=== PATIENT | male | born 2000 | race Caucasian/White ===

== ENCOUNTER 2020-10-24 21:15 | Emergency (ER) | payer SELFPAY ==
--- NOTE | 2020-10-24 21:37 | EDM.PDOC ---
"ED HPI GENERAL MEDICAL PROBLEM - General Stated Complaint: IN PAIN Time Seen by Provider: 10/24/20 21:25 Source of Information: Reports: Patient History Limitations: Reports: No Limitations - History of Present Illness INITIAL COMMENTS - FREE TEXT/NARRATIVE: This 20 yo male patient reports to the ED with right sided abdominal pain. The patient locates his pain as under his right ribs. The patient reports his symptoms started 4 days ago. The patient has not taken any Tylenol or ibuprofen for temporary symptom relief. The patient has not been seen by a primary care facility as he just moved to this area. The patient reports increased pain with sitting down or lying down as well as with getting up. The patient reports he had a softer bowel movement yesterday with increased pain with baring down. The patient report no changes with his symptoms with eating. The patient denies any nausea, vomiting or diarrhea. Onset Date: 10/20/20 Duration: Constant Location: Reports: Abdomen (Right siede) Quality: Reports: Ache, Sharp Severity: Moderate Improves with: Reports: Rest Worsens with: Reports: Movement Associated Symptoms: Reports: No Other Symptoms Treatments ACCOUNTS SUPERVISOR: Denies: Acetaminophen, NSAIDS Right Flank Pain Score (Numeric/FACES): 9 - Related Data Allergies Allergy/AdvReac Type Severity Reaction Status Date / Time No Known Allergies Allergy Verified 10/24/20 21:27 Home Meds: Home Meds . [No Known Home Meds] 10/24/20 [History] Social & Family History - Tobacco Use Tobacco Use Status *Q: Never Tobacco User - Recreational Drug Use Recreational Drug Use: No ED ROS GENERAL - Review of Systems Review Of Systems: Comprehensive ROS is negative, except as noted in HPI. ED EXAM, GI/ABD - Physical Exam Exam: See Below Exam Limited By: No Limitations General Appearance: Alert, WD/WN, Mild Distress Eyes: Bilateral: Normal Appearance, EOMI Ears: Normal External Exam, Normal Canal, Hearing Grossly Normal, Normal TMs Nose: Normal Inspection, Normal Mucosa, No Blood Throat/Mouth: Normal Inspection, Normal Lips, Normal Teeth, Normal Gums, Normal Oropharynx, Normal Voice, No Airway Compromise Head: Atraumatic, Normocephalic Neck: Normal Inspection, Supple, Non-Tender, Full Range of Motion Respiratory/Chest: No Respiratory Distress, Lungs Clear, Normal Breath Sounds, No Accessory Muscle Use, Chest Non-Tender Cardiovascular: Normal Peripheral Pulses, Regular Rate, Rhythm, No Edema, No Gallop, No JVD, No Murmur, No Rub GI/Abdominal Exam: Normal Bowel Sounds, Tender (RLQ ), Other (The patient reports increased pain with psoas). No: Rebound (Male) Exam: Deferred Rectal (Males) Exam: Deferred Back Exam: Normal Inspection, Full Range of Motion, NT Extremities: Normal Inspection, Normal Range of Motion, Non-Tender, Normal Capillary Refill, No Pedal Edema Neurological: Alert, Oriented, CN II-XII Intact, Normal Cognition, Normal Gait, Normal Reflexes, No Motor/Sensory Deficits Psychiatric: Normal Affect, Normal Mood Skin Exam: Warm, Dry, Intact, Normal Color, No Rash Lymphatic: No Adenopathy Course - Vital Signs Last Recorded V/S: Last Vital Signs Temp 98.4 F 10/24/20 21:27 Pulse 101 H 10/24/20 21:27 Resp 16 10/24/20 21:27 BP 140/87 10/24/20 21:27 Pulse Ox 99 10/24/20 21:27 - Orders/Labs/Meds Labs: Laboratory Tests 10/24/20 10/24/20 10/24/20 Range/Units 21:32 21:32 21:34 WBC 10.4 H (5.0-10.0) 10^3/uL RBC 5.11 (4.6-6.2) 10^6/uL Hgb 15.8 (14.0-18.0) g/dL Hct 47.5 (40.0-54.0) % MCV 93.0 (80-100) fL MCH 30.9 (27.0-34.0) pg MCHC 33.3 (33.0-35.0) g/dL Plt Count 248 (150-450) 10^3/uL Neut % (Auto) 65.0 (42.2-75.2) % Lymph % (Auto) 23.0 (20.5-50.1) % [place] % (Auto) 9.1 H (2-8) % Eos % (Auto) 2.7 (1.0-3.0) % Baso % (Auto) 0.2 (0.0-1.0) % Sodium 146 H (136-145) mmol/L Potassium 3.9 (3.5-5.1) mmol/L Chloride 106 (98-107) mmol/L Carbon Dioxide 31 (21-32) mmol/L Anion Gap 12.9 (7-13) mEq/L BUN 19 H (7-18) mg/dL Creatinine 0.80 (0.70-1.30) mg/dL Est Cr Clr Drug Dosing 122.31 mL/min Estimated GFR (MDRD) > 60 BUN/Creatinine Ratio 23.8 (No establ ref range) Glucose 97 (70-99) mg/dL Calcium 8.6 (8.5-10.1) mg/dL Total Bilirubin 0.2 (0.2-1.0) mg/dL AST 37 (15-37) U/L ALT 131 H (16-63) U/L Alkaline Phosphatase 75 (46-116) U/L Total Protein 7.1 (6.4-8.2) g/dL Albumin 3.8 (3.4-5.0) g/dL Globulin 3.3 Albumin/Globulin Ratio 1.2 Amylase 52 (25-115) U/L Lipase 100 (73-393) U/L Urine Color Yellow (YELLOW) Urine Appearance Slightly cloudy (CLEAR) Urine pH 7.0 (5.0-9.0) Ur Specific [place] 1.025 (1.005-1.030) Urine Protein Negative (NEGATIVE) Urine Glucose (UA) Negative (NEGATIVE) Urine Ketones Negative (NEGATIVE) Urine Occult Blood Trace-intact H (NEGATIVE) Urine Nitrite Negative (NEGATIVE) Urine Bilirubin Negative (NEGATIVE) Urine Urobilinogen 0.2 (0.2-1.0) mg/dL Ur Leukocyte Esterase Negative (NEGATIVE) Urine RBC 5-10 H (0-5) /HPF Urine WBC 0-5 (0-5/HPF) /HPF Ur Epithelial Cells Rare (NOT SEEN) /HPF Amorphous Sediment Few (NOT SEEN) /HPF Urine Bacteria Rare (0-FEW/HPF) /HPF Urine Mucus Rare (NOT SEEN) /LPF Urine Other See note - Radiology Interpretation Free Text/Narrative:: [facility] Final Radiology Report Call: [phone] assistance Online chat: [email or web address] Name: MILTON NEGRON Age: 20Years M Date: 10/24/2020 SSN: -- : [id number] Study: CT ABDOMEN PELVIS WO CONT Requesting Physician: Jm Pizano Images: [id number] Addl Studies: Provided Clinical History: Right lower quadrant abdominal pain Contrast: Without Contrast Medium: Contrast Amount: Contrast Method: Page 1 of 2 PROCEDURE INFORMATION: Exam: CT Abdomen And Pelvis Without Contrast Exam date and time: 10/24/2020 10:15 PM Age: 20 years old Clinical indication: Other: Hematuria, wbc 10.4; Additional info: Right lower quadrant abdominal pain TECHNIQUE: Imaging protocol: Computed tomography of the abdomen and pelvis without contrast. Radiation optimization: All CT scans at this facility use at least one of these dose optimization techniques: automated exposure control; mA and/or kV adjustment per patient size (includes targeted exams where dose is matched to clinical indication); or iterative reconstruction. COMPARISON: No relevant prior studies available. FINDINGS: Lungs: The lung bases are clear. No effusion Liver: Normal. No mass. Gallbladder and bile ducts: No wall thickening, pericholecystic fluid or stones. Pancreas: Normal. No ductal dilation. Spleen: Normal. No splenomegaly. Adrenal glands: Normal. No mass. Kidneys and ureters: Normal. No hydronephrosis. Stomach and bowel: Unremarkable. No obstruction. No mucosal thickening. Appendix: No evidence of appendicitis. Intraperitoneal space: Unremarkable. No free air. No significant fluid collection. Vasculature: Unremarkable. No abdominal aortic aneurysm. Lymph nodes: Unremarkable. No enlarged lymph nodes. MILTON NEGRON | Final Radiology Report CONFIDENTIALITY STATEMENT This report is intended only for use by the referring physician, and only in accordance with law. If you received this in error, call [phone]. Page 2 of 2 Urinary bladder: Unremarkable as visualized. Reproductive: Unremarkable as visualized. Bones/joints: Unremarkable. No acute fracture. Soft tissues: Unremarkable. Other findings: No cause for acute pain is identified. IMPRESSION: No cause for acute pain is identified. Thank you for allowing us to participate in the care of your patient. Dictated and Authenticated by: Jesús Jin DO 10/24/2020 10:31 PM Central Time ([place] & [place]) - Re-Assessments/Exams Free Text/Narrative Re-Assessment/Exam: 10/24/20 22:01 The patient was advised of the lab results. An order was placed for a CT of his abdomen and pelvis without contrast. Departure - Departure Time of Disposition: 22:37 Disposition: Home, Self-Care 01 Condition: Fair Clinical Impression: Abdominal pain Constipation Qualifiers: Constipation type: unspecified constipation type Qualified Code(s): K59.00 - Constipation, unspecified - Discharge Information *PRESCRIPTION DRUG MONITORING PROGRAM REVIEWED*: Not Applicable *COPY OF PRESCRIPTION DRUG MONITORING REPORT IN PATIENT DES: Not Applicable Instructions: Constipation, Adult, [id number] Forms: ED Department Discharge Care Plan Goals: The patient was advised of the examination, lab and CT results during the visit. The patient was advised to take an adult dose of MiraLax daily for the next 4 days and increase his oral fluid intake. If the patient has any additional symptoms or concerns, the patient should either follow-up with a primary care facility or return to the emergency department. Sepsis Event Note (ED) - Evaluation Sepsis Screening Result: No Definite Risk - Focused Exam Vital Signs: Vital Signs Temp Pulse Resp BP Pulse Ox 10/24/20 21:27 98.4 F 101 H 16 140/87 99"
[2020-10-24 21:55] LABS: ANION GAP 12.9 mEq/L (7-13); CHLORIDE,CL 106 mmol/L (98-107); SODIUM,NA 146 mmol/L (136-145)
--- NOTE | 2020-10-24 22:32 | CT ---
PROCEDURE INFORMATION: Exam: CT Abdomen And Pelvis Without Contrast Exam date and time: 10/24/2020 10:15 PM Age: 20 years old Clinical indication: Other: Hematuria, wbc 10.4; Additional info: Right lower quadrant abdominal pain TECHNIQUE: Imaging protocol: Computed tomography of the abdomen and pelvis without contrast. Radiation optimization: All CT scans at this facility use at least one of these dose optimization techniques: automated exposure control; mA and/or kV adjustment per patient size (includes targeted exams where dose is matched to clinical indication); or iterative reconstruction. COMPARISON: No relevant prior studies available. FINDINGS: Lungs: The lung bases are clear. No effusion Liver: Normal. No mass. Gallbladder and bile ducts: No wall thickening, pericholecystic fluid or stones. Pancreas: Normal. No ductal dilation. Spleen: Normal. No splenomegaly. Adrenal glands: Normal. No mass. Kidneys and ureters: Normal. No hydronephrosis. Stomach and bowel: Unremarkable. No obstruction. No mucosal thickening. Appendix: No evidence of appendicitis. Intraperitoneal space: Unremarkable. No free air. No significant fluid collection. Vasculature: Unremarkable. No abdominal aortic aneurysm. Lymph nodes: Unremarkable. No enlarged lymph nodes. Urinary bladder: Unremarkable as visualized. Reproductive: Unremarkable as visualized. Bones/joints: Unremarkable. No acute fracture. Soft tissues: Unremarkable. Other findings: No cause for acute pain is identified. IMPRESSION: No cause for acute pain is identified.
== END 2020-10-24 22:45 | disposition home or self-care (01) ==
LOC: DL.ED 21:15
DX: K59.00 Constipation, unspecified (principal)
CPT/HCPCS: 36415; 74176; 80053; 81001; 82150; 83690; 85025; 99283; 99284-25

== ENCOUNTER 2024-02-10 23:42 | Emergency (ER) | payer SELFPAY ==
[2024-02-10 23:40] LABS: BASOPHILS PERCENT AUTO 0.3 % (0.0-1.0); EOSINOPHILS PERCENT AUTO 1.4 % (1.0-3.0); HEMATOCRIT 48.5 % (40.0-54.0); HEMOGLOBIN 15.9 g/dL (14.0-18.0); LYMPHOCYTES PERCENT AUTO 23.8 % (20.5-50.1); MEAN CORPUSCULAR HEMOGLOBIN 30.5 pg (27.0-34.0); MEAN CORPUSCULAR HGB CONC 32.8 g/dL (33.0-35.0); MEAN CORPUSCULAR VOLUME 93.1 fL (80-100); MONOCYTES PERCENT AUTO 5.1 % (2-8); NEUTROPHILS PERCENT AUTO 69.4 % (42.2-75.2); PLATELET COUNT,PLT 335 10^3/uL (150-450); RED BLOOD CELL COUNT 5.21 10^6/uL (4.6-6.2)
[2024-02-10] MEDS: Ketorolac 30 MG/ML SDV IM ONE (23:45)
[2024-02-10] MEDS: Ibuprofen 600 MG Tab PO ONE (23:45)
[2024-02-11 00:01] LABS: A/G RATIO 1.2; ALBUMIN 4.1 g/dL (3.4-5.0); ANION GAP 11.9 mEq/L (7-13); BILIRUBIN TOTAL 0.2 mg/dL (0.2-1.0); BUN/CREATININE RATIO 13.9 (No establ ref range); CALCIUM 9.6 mg/dL (8.5-10.1); CREATININE 1.01 mg/dL (0.70-1.30); EST CRCL DRUG DOSING (CG) 90.76 mL/min; MAGNESIUM 2.1 mg/dL (1.8-2.4); POTASSIUM,K 3.9 mmol/L (3.5-5.1); PROTEIN TOTAL,TP 7.6 g/dL (6.4-8.2)
[2024-02-11] MEDS: Iopamidol 612 MG/ML 100 ML Bottle IVPUSH ONE (01:05)
[2024-02-11] MEDS: Acetaminophen 500 MG Tab PO ONE (02:49)
[2024-02-11] MEDS: Ketorolac 30 MG/ML SDV IVPUSH ONE (05:53)
[2024-02-11] MEDS ORDERED: Ibuprofen 600 MG Tab PO ONE (05:54)
[2024-02-11] MEDS ORDERED: Acetaminophen 325 MG Tab PO ONE (05:54)
== END 2024-02-11 06:46 | disposition home or self-care (01) ==
LOC: EDUNIT# → DL.ED 23:42
DX: K52.9 Noninfective gastroenteritis and colitis, unspecified (principal); M54.50 Low back pain, unspecified
CPT/HCPCS: 36415; 72100; 74177; 80053; 83690; 83735; 85025; 93005; 96372; 96374; 99285; A9270; J1885; Q9967; 93010; 99284

== ENCOUNTER 2024-02-12 15:53 | Emergency (ER) | payer SELFPAY ==
[2024-02-12 17:30] LABS: APPEARANCE,URINE CLEAR (CLEAR); BILIRUBIN,URINE NEGATIVE (NEGATIVE); COLOR,URINE YELLOW (YELLOW); GLUCOSE,URINE NEGATIVE (NEGATIVE); KETONES,URINE NEGATIVE (NEGATIVE); LEUKOCYTE ESTERASE,URINE NEGATIVE (NEGATIVE); NITRITE,URINE NEGATIVE (NEGATIVE); OCCULT BLOOD,URINE NEGATIVE (NEGATIVE); PH,URINE 5.5 (5.0-9.0); PROTEIN,URINE NEGATIVE (NEGATIVE); UROBILINOGEN,URINE 0.2 mg/dL (0.2-1.0)
[2024-02-12] MEDS ORDERED: Magnesium Citrate Solution 296 ML Bottle ONE (18:02)
[2024-02-12] MEDS: Magnesium Citrate Solution 296 ML Bottle PO ONE (18:04)
== END 2024-02-12 18:18 | disposition home or self-care (01) ==
LOC: DL.ED 15:53
DX: K59.00 Constipation, unspecified (principal); M54.50 Low back pain, unspecified
CPT/HCPCS: 74019; 81003; 99283; 99284

== ENCOUNTER 2024-02-18 21:23 | Emergency (ER) | payer SELFPAY ==
[2024-02-18] MEDS: Iopamidol 612 MG/ML 100 ML Bottle IVPUSH ONE (21:29)
[2024-02-18 21:43] LABS: BASOPHILS PERCENT AUTO 0.2 % (0.0-1.0); EOSINOPHILS PERCENT AUTO 2.9 % (1.0-3.0); HEMATOCRIT 49.8 % (40.0-54.0); HEMOGLOBIN 16.5 g/dL (14.0-18.0); LYMPHOCYTES PERCENT AUTO 25.5 % (20.5-50.1); MEAN CORPUSCULAR HEMOGLOBIN 30.8 pg (27.0-34.0); MEAN CORPUSCULAR HGB CONC 33.1 g/dL (33.0-35.0); MEAN CORPUSCULAR VOLUME 92.9 fL (80-100); MONOCYTES PERCENT AUTO 4.7 % (2-8); NEUTROPHILS PERCENT AUTO 66.7 % (42.2-75.2); PLATELET COUNT,PLT 272 10^3/uL (150-450); RED BLOOD CELL COUNT 5.36 10^6/uL (4.6-6.2); WHITE BLOOD CELL COUNT,WBC 10.3 10^3/uL (5.0-10.0)
[2024-02-18] MEDS: Acetaminophen 325 MG Tab PO ONE (22:00)
[2024-02-18 22:14] LABS: A/G RATIO 1.1; ALANINE AMINOTRANSFERASE,ALT 52 U/L (16-63); ALBUMIN 3.9 g/dL (3.4-5.0); ALKALINE PHOSPHATASE 72 U/L (46-116); ANION GAP 17.5 mEq/L (7-13); ASPARTATE AMNIOTRANSFERASE,AST 20 U/L (15-37); BILIRUBIN TOTAL 0.2 mg/dL (0.2-1.0); BLOOD UREA NITROGEN,BUN 13 mg/dL (7-18); BUN/CREATININE RATIO 12.9 (No establ ref range); CALCIUM 9.1 mg/dL (8.5-10.1); CARBON DIOXIDE,CO2 24 mmol/L (21-32); CHLORIDE,CL 106 mmol/L (98-107); CREATININE 1.01 mg/dL (0.70-1.30); EST CRCL DRUG DOSING (CG) 94.43 mL/min; GLUCOSE RANDOM 136 mg/dL (70-99); LIPASE 30 U/L (16-77); MAGNESIUM 1.9 mg/dL (1.8-2.4); POTASSIUM,K 3.5 mmol/L (3.5-5.1); PROTEIN TOTAL,TP 7.3 g/dL (6.4-8.2); SODIUM,NA 144 mmol/L (136-145)
[2024-02-18 22:15] LABS: ESTIMATED GFR 107 mL/min (>=60)
== END 2024-02-18 23:41 | disposition home or self-care (01) ==
LOC: DL.ED 21:23
DX: R10.9 Unspecified abdominal pain (principal)
CPT/HCPCS: 36415; 74177; 80053; 83690; 83735; 84484; 85025; 99285; A9270; Q9967

== ENCOUNTER 2024-02-24 10:57 | Emergency (ER) | payer SELFPAY ==
[2024-02-24] MEDS: Acetaminophen 500 MG Tab PO ONE (11:16)
[2024-02-24] MEDS: Take Home: Ondansetron 4 MG Tab.DIS, 5 Tab Pack PO ONE (11:17)
== END 2024-02-24 11:22 | disposition home or self-care (01) ==
LOC: DL.ED 10:57
DX: B34.9 Viral infection, unspecified (principal)
CPT/HCPCS: 99283; A9270; Q0162

== ENCOUNTER 2024-02-26 18:11 | Emergency (ER) | payer SELFPAY ==
[2024-02-26] MEDS: Ketorolac 30 MG/ML SDV IM ONE (18:24)
== END 2024-02-26 18:30 | disposition home or self-care (01) ==
LOC: DL.ED 18:11
DX: R07.89 Other chest pain (principal)
CPT/HCPCS: 96372; 99284; J1885

== ENCOUNTER 2024-02-28 13:23 | Emergency (ER) | payer MEDICAID ==
[2024-02-28 14:19] LABS: BASOPHILS PERCENT AUTO 0.4 % (0.0-1.0); EOSINOPHILS PERCENT AUTO 3.8 % (1.0-3.0); HEMATOCRIT 50.5 % (40.0-54.0); HEMOGLOBIN 16.5 g/dL (14.0-18.0); LYMPHOCYTES PERCENT AUTO 22.4 % (20.5-50.1); MEAN CORPUSCULAR HGB CONC 32.7 g/dL (33.0-35.0); MEAN CORPUSCULAR VOLUME 94.7 fL (80-100); MONOCYTES PERCENT AUTO 6.3 % (2-8); NEUTROPHILS PERCENT AUTO 67.1 % (42.2-75.2); PLATELET COUNT,PLT 228 10^3/uL (150-450); RED BLOOD CELL COUNT 5.33 10^6/uL (4.6-6.2); WHITE BLOOD CELL COUNT,WBC 9.1 10^3/uL (5.0-10.0)
[2024-02-28 14:45] LABS: A/G RATIO 1.2; ALBUMIN 4.2 g/dL (3.4-5.0); ANION GAP 12.3 mEq/L (7-13); BILIRUBIN TOTAL 0.3 mg/dL (0.2-1.0); BUN/CREATININE RATIO 19.1 (No establ ref range); CALCIUM 9.5 mg/dL (8.5-10.1); CREATININE 0.89 mg/dL (0.70-1.30); EST CRCL DRUG DOSING (CG) 107.17 mL/min; POTASSIUM,K 4.3 mmol/L (3.5-5.1); PROTEIN TOTAL,TP 7.6 g/dL (6.4-8.2)
[2024-02-28] MEDS: Aspirin 81 MG Tab.Chew PO ONE (15:38)
== END 2024-02-28 16:58 | disposition home or self-care (01) ==
LOC: DL.ED 13:23
DX: R07.89 Other chest pain (principal)
CPT/HCPCS: 36415; 71045; 80053; 83690; 84484; 85025; 93005; 99285; A9270; 93010; 99284

== ENCOUNTER 2024-03-02 12:38 | Emergency (ER) | payer MEDICAID | END 2024-03-02 16:06 | disposition home or self-care (01) | LOC: DL.ED 12:38 | DX: R19.7 Diarrhea, unspecified (principal) | CPT/HCPCS: 87428-QW; 99282; 99284 ==

== ENCOUNTER 2024-03-03 15:07 | Emergency (ER) | payer MEDICAID ==
[2024-03-03] MEDS: Ketorolac 30 MG/ML SDV IM ONE (15:31)
== END 2024-03-03 15:44 | disposition home or self-care (01) ==
LOC: DL.ED 15:07
DX: R09.1 Pleurisy (principal)
CPT/HCPCS: 96372; 99283; J1885

== ENCOUNTER 2024-03-03 20:54 | Emergency (ER) | payer MEDICAID ==
[2024-03-03 21:54] LABS: APPEARANCE,URINE CLEAR (CLEAR); BILIRUBIN,URINE NEGATIVE (NEGATIVE); COLOR,URINE STRAW (YELLOW); GLUCOSE,URINE NEGATIVE (NEGATIVE); KETONES,URINE NEGATIVE (NEGATIVE); LEUKOCYTE ESTERASE,URINE NEGATIVE (NEGATIVE); NITRITE,URINE NEGATIVE (NEGATIVE); OCCULT BLOOD,URINE TRACE-INTACT (NEGATIVE); PROTEIN,URINE NEGATIVE (NEGATIVE); UROBILINOGEN,URINE 0.2 mg/dL (0.2-1.0)
[2024-03-03 22:03] LABS: BACTERIA,URINE RARE /HPF (0-FEW/HPF); RBC,URINE 0-5 /HPF (0-5); WBC,URINE NOT SEEN /HPF (0-5/HPF)
[2024-03-03 22:04] LABS: AMORPHOUS SEDIMENT,URINE FEW /HPF (NOT SEEN); EPITHELIAL CELLS,URINE RARE /HPF (NOT SEEN)
== END 2024-03-03 21:45 | disposition home or self-care (01) ==
LOC: DL.ED 20:54
DX: R30.0 Dysuria (principal); Z63.9 Problem related to primary support group, unspecified; Z59.86 Financial insecurity; Z59.82 Transportation insecurity; Z59.01 Sheltered homelessness
CPT/HCPCS: 81001; 99283

== ENCOUNTER 2024-03-04 21:21 | Emergency (ER) | payer MEDICAID | END 2024-03-04 22:46 | disposition home or self-care (01) | LOC: DL.ED 21:21 | DX: K62.5 Hemorrhage of anus and rectum (principal); K59.00 Constipation, unspecified; Z72.821 Inadequate sleep hygiene; Z59.01 Sheltered homelessness; Z59.86 Financial insecurity; Z59.82 Transportation insecurity; Z63.9 Problem related to primary support group, unspecified | CPT/HCPCS: 99283 ==

== ENCOUNTER 2024-03-07 17:19 | Emergency (ER) | payer MEDICAID ==
[2024-03-07] MEDS: Ketorolac 30 MG/ML SDV IM ONE (18:14)
[2024-03-07] MEDS: Lidocaine 5% 700 MG Patch TOP ONE (18:14)
[2024-03-07] MEDS: Acetaminophen 500 MG Tab PO ONE (18:15)
[2024-03-07] MEDS: Orphenadrine 60 MG/2 ML Inj IM ONE (18:15)
== END 2024-03-07 18:42 | disposition home or self-care (01) ==
LOC: DL.ED 17:19
DX: M54.50 Low back pain, unspecified (principal)
CPT/HCPCS: 96372; 99282; 99283; A9270-GY; J1885; J2360

== ENCOUNTER 2024-03-10 20:28 | Emergency (ER) | payer MEDICAID ==
[2024-03-10] MEDS: Ketorolac 30 MG/ML SDV IM ONE (22:41)
[2024-03-10 22:53] LABS: APPEARANCE,URINE CLEAR (CLEAR); BILIRUBIN,URINE NEGATIVE (NEGATIVE); COLOR,URINE YELLOW (YELLOW); GLUCOSE,URINE NEGATIVE (NEGATIVE); KETONES,URINE NEGATIVE (NEGATIVE); LEUKOCYTE ESTERASE,URINE NEGATIVE (NEGATIVE); NITRITE,URINE NEGATIVE (NEGATIVE); OCCULT BLOOD,URINE NEGATIVE (NEGATIVE); PROTEIN,URINE NEGATIVE (NEGATIVE); UROBILINOGEN,URINE 0.2 mg/dL (0.2-1.0)
== END 2024-03-11 00:55 | disposition home or self-care (01) ==
LOC: DL.ED 20:28
DX: M54.50 Low back pain, unspecified (principal); Z86.16 Personal history of COVID-19
CPT/HCPCS: 72131; 81003; 96372; 99284; J1885

== ENCOUNTER 2024-03-11 22:29 | Emergency (ER) | payer MEDICAID ==
[2024-03-12] MEDS: Aspirin 81 MG Tab.Chew PO ONE (01:57)
[2024-03-12 02:15] LABS: BASOPHILS PERCENT AUTO 0.4 % (0.0-1.0); EOSINOPHILS PERCENT AUTO 2.2 % (1.0-3.0); HEMATOCRIT 50.6 % (40.0-54.0); HEMOGLOBIN 16.8 g/dL (14.0-18.0); MEAN CORPUSCULAR HEMOGLOBIN 31.2 pg (27.0-34.0); MEAN CORPUSCULAR HGB CONC 33.2 g/dL (33.0-35.0); MEAN CORPUSCULAR VOLUME 94.1 fL (80-100); MONOCYTES PERCENT AUTO 5.6 % (2-8); NEUTROPHILS PERCENT AUTO 61.8 % (42.2-75.2); PLATELET COUNT,PLT 232 10^3/uL (150-450); RED BLOOD CELL COUNT 5.38 10^6/uL (4.6-6.2); WHITE BLOOD CELL COUNT,WBC 10.4 10^3/uL (5.0-10.0)
[2024-03-12 02:38] LABS: A/G RATIO 1.3; ALANINE AMINOTRANSFERASE,ALT 33 U/L (16-63); ALBUMIN 4.2 g/dL (3.4-5.0); ALKALINE PHOSPHATASE 85 U/L (46-116); ASPARTATE AMNIOTRANSFERASE,AST 16 U/L (15-37); BILIRUBIN TOTAL 0.4 mg/dL (0.2-1.0); BLOOD UREA NITROGEN,BUN 22 mg/dL (7-18); BUN/CREATININE RATIO 26.8 (No establ ref range); CALCIUM 9.1 mg/dL (8.5-10.1); CARBON DIOXIDE,CO2 29 mmol/L (21-32); CHLORIDE,CL 106 mmol/L (98-107); CREATININE 0.82 mg/dL (0.70-1.30); GLUCOSE RANDOM 105 mg/dL (70-99); LIPASE 36 U/L (16-77); MAGNESIUM 2.4 mg/dL (1.8-2.4); PROTEIN TOTAL,TP 7.5 g/dL (6.4-8.2); SODIUM,NA 144 mmol/L (136-145)
[2024-03-12 02:40] LABS: ESTIMATED GFR 126 mL/min (>=60)
[2024-03-12] MEDS: Acetaminophen 325 MG Tab PO ONE (04:46)
== END 2024-03-12 04:50 | disposition home or self-care (01) ==
LOC: DL.ED 22:29
DX: R07.2 Precordial pain (principal); Z86.16 Personal history of COVID-19
CPT/HCPCS: 36415; 71045; 80053; 83690; 83735; 84484; 85025; 85379; 93005; 99285; A9270

== ENCOUNTER 2024-03-12 18:55 | Emergency (ER) | payer MEDICAID ==
[2024-03-12 18:55] LABS: APPEARANCE,URINE CLEAR (CLEAR); BILIRUBIN,URINE NEGATIVE (NEGATIVE); COLOR,URINE YELLOW (YELLOW); GLUCOSE,URINE NEGATIVE (NEGATIVE); KETONES,URINE TRACE (NEGATIVE); LEUKOCYTE ESTERASE,URINE NEGATIVE (NEGATIVE); NITRITE,URINE NEGATIVE (NEGATIVE); OCCULT BLOOD,URINE TRACE-INTACT (NEGATIVE); PH,URINE 6.5 (5.0-9.0); PROTEIN,URINE NEGATIVE (NEGATIVE); UROBILINOGEN,URINE 0.2 mg/dL (0.2-1.0)
[2024-03-12] MEDS: Ketorolac 30 MG/ML SDV IVPUSH ONE (19:02)
[2024-03-12 19:08] LABS: BACTERIA,URINE FEW /HPF (0-FEW/HPF); MUCUS,URINE FEW /LPF (NOT SEEN); WBC,URINE 0-5 /HPF (0-5/HPF)
[2024-03-12 19:09] LABS: EPITHELIAL CELLS,URINE RARE /HPF (NOT SEEN)
[2024-03-13] MEDS ORDERED: Levothyroxine 150 MCG Tab PO SCH (06:00)
== END 2024-03-12 19:08 | disposition home or self-care (01) ==
LOC: DL.ED 18:55
DX: N50.811 Right testicular pain (principal); Z86.16 Personal history of COVID-19
CPT/HCPCS: 81001; 96374; 99284; J1885

== ENCOUNTER 2024-03-15 20:38 | Emergency (ER) | payer MEDICAID ==
[2024-03-15] MEDS: Acetaminophen 325 MG Tab PO ONE (21:08)
[2024-03-15 21:20] LABS: BASOPHILS PERCENT AUTO 0.2 % (0.0-1.0); EOSINOPHILS PERCENT AUTO 0.8 % (1.0-3.0); HEMATOCRIT 51.1 % (40.0-54.0); HEMOGLOBIN 16.9 g/dL (14.0-18.0); LYMPHOCYTES PERCENT AUTO 16.3 % (20.5-50.1); MEAN CORPUSCULAR HEMOGLOBIN 30.8 pg (27.0-34.0); MEAN CORPUSCULAR HGB CONC 33.1 g/dL (33.0-35.0); MEAN CORPUSCULAR VOLUME 93.2 fL (80-100); MONOCYTES PERCENT AUTO 4.9 % (2-8); NEUTROPHILS PERCENT AUTO 77.8 % (42.2-75.2); PLATELET COUNT,PLT 260 10^3/uL (150-450); RED BLOOD CELL COUNT 5.48 10^6/uL (4.6-6.2); WHITE BLOOD CELL COUNT,WBC 14.8 10^3/uL (5.0-10.0)
[2024-03-15 21:40] LABS: A/G RATIO 1.4; ALANINE AMINOTRANSFERASE,ALT 39 U/L (16-63); ALBUMIN 4.5 g/dL (3.4-5.0); ALKALINE PHOSPHATASE 78 U/L (46-116); ANION GAP 12.6 mEq/L (7-13); ASPARTATE AMNIOTRANSFERASE,AST 18 U/L (15-37); BILIRUBIN TOTAL 0.4 mg/dL (0.2-1.0); BLOOD UREA NITROGEN,BUN 18 mg/dL (7-18); BUN/CREATININE RATIO 17.3 (No establ ref range); CALCIUM 9.6 mg/dL (8.5-10.1); CARBON DIOXIDE,CO2 29 mmol/L (21-32); CHLORIDE,CL 104 mmol/L (98-107); CREATININE 1.04 mg/dL (0.70-1.30); EST CRCL DRUG DOSING (CG) 95.27 mL/min; ESTIMATED GFR 103 mL/min (>=60); GLUCOSE RANDOM 100 mg/dL (70-99); LIPASE 38 U/L (16-77); POTASSIUM,K 3.6 mmol/L (3.5-5.1); PROTEIN TOTAL,TP 7.8 g/dL (6.4-8.2); SODIUM,NA 142 mmol/L (136-145)
[2024-03-15 23:53] LABS: APPEARANCE,URINE CLEAR (CLEAR); BILIRUBIN,URINE NEGATIVE (NEGATIVE); COLOR,URINE YELLOW (YELLOW); GLUCOSE,URINE NEGATIVE (NEGATIVE); KETONES,URINE NEGATIVE (NEGATIVE); LEUKOCYTE ESTERASE,URINE NEGATIVE (NEGATIVE); NITRITE,URINE NEGATIVE (NEGATIVE); OCCULT BLOOD,URINE NEGATIVE (NEGATIVE); PROTEIN,URINE NEGATIVE (NEGATIVE); UROBILINOGEN,URINE 0.2 mg/dL (0.2-1.0)
[2024-03-16 01:02] LABS: LACTIC ACID 0.7 mmol/L (0.4-2.0)
== END 2024-03-16 01:07 | disposition home or self-care (01) ==
LOC: DL.ED 20:38 → EEVIPCON 20:38 → DL.ED 03-16 01:07
DX: R07.89 Other chest pain (principal); D72.829 Elevated white blood cell count, unspecified
CPT/HCPCS: 36415; 71046; 80053; 81003; 83605; 83690; 84484; 85025; 87428; 93005; 99285; A9270